=== PATIENT | female | born 1985 | race American Indian/Alaskan Native ===

== ENCOUNTER 2021-01-11 18:54 | Emergency (ER) | payer OTHER ==
[~2021-01-11] VITALS: Ht 182.9 cm; Wt 104.3 kg
[2021-01-11] MEDS ORDERED: Amoxicillin500 MG (19:13)
[2021-01-11] MEDS ORDERED: LORA.5 (19:13)
[2021-01-11] MEDS ORDERED: AMOCLA875 PO (20:57)
[2021-01-11] MEDS ORDERED: METPRE4DP PO (20:57)
== END 2021-01-11 21:07 | disposition home or self-care (01) ==
LOC: ER 18:54
DX: K11.20 Sialoadenitis, unspecified (principal); Z79.899 Other long term (current) drug therapy
CPT/HCPCS: 99283; A9270; J1100